=== PATIENT | male | born 1985 | race Caucasian/White ===

== ENCOUNTER 2017-04-21 20:42 | Emergency (ER) | payer MEDICAID | END 2017-04-21 21:40 | disposition left against medical advice (07) | LOC: ER 20:42 | DX: Z53.21 Procedure and treatment not carried out due to patient leaving prior to being seen by health care provider (principal) ==

== ENCOUNTER 2018-02-20 22:12 | Emergency (ER) | payer SELFPAY ==
[2018-02-20] MEDS ORDERED: NORMAL SALINE 1000 ML 1,000 ML IV ONE (22:16)
[2018-02-20] MEDS ORDERED: ONDANSETRON HCL INJ/PF 4 MG/2 ML SDV IV ONE (22:17)
--- NOTE | 2018-02-20 22:23 | ER Document Report ---
ED General - General Stated Complaint: ETOH Time Seen by Provider: 02/20/18 22:16 Cannot obtain history due to: Intoxicated Notes: Patient is a 32-year-old male who presents in the custody of police and EMS after apparently having an episode of syncope while under arrest for drunk driving. Patient apparently syncopized while standing next to a workplace rehabilitation officer. EMS was contacted and he was subsequently brought to the emergency department. The patient himself is unable to provide meaningful history secondary to heavy alcohol intoxication. Past Medical History - General Information source: Patient Cannot obtain history due to: Intoxicated - Social History Smoking Status: Unknown if Ever Smoked Frequency of alcohol use: Heavy Drug Abuse: None Lives with: Spouse/Significant other Family History: Reviewed & Not Pertinent Review of Systems - Review of Systems -: Yes ROS unobtainable due to patient's medical condition Physical Exam - Vital signs Vitals: BP Pulse Ox 158/134 H 95 02/20/18 22:27 02/20/18 22:27 Interpretation: Hypertensive Notes: PHYSICAL EXAMINATION: GENERAL: Intoxicated, somnolent HEAD: Atraumatic, normocephalic. EYES: Pupils equal round and reactive to light, extraocular movements intact, sclera anicteric, conjunctiva are normal. ENT: nares patent, oropharynx clear without exudates. Moderately dry mucous membranes. NECK: Normal range of motion, supple without lymphadenopathy LUNGS: Breath sounds clear to auscultation bilaterally and equal. No wheezes rales or rhonchi. HEART: Regular rate and rhythm without murmurs ABDOMEN: Soft, nontender, normoactive bowel sounds. No guarding, no rebound. No masses appreciated. EXTREMITIES: no pitting or edema. No cyanosis. NEUROLOGICAL: No focal neurological deficits. Moves all extremities spontaneously and on command. PSYCH: Intoxicated SKIN: Warm, Dry, normal turgor, no rashes or lesions noted. Course - Re-evaluation Re-evalutation: 02/20/18 22:22 Patient presents after having a syncopal episode after being pulled over for drunk driving. Patient clinically appears profoundly intoxicated. He is actively vomiting at time of presentation. EMS reports that he has had some periods of hypotension in route to the hospital. The patient is unable to provide meaningful history at time of my initial assessment secondary to significant apparent intoxication. Will proceed with labs, IV fluids, IV ondansetron, EKG, place patient on telemetry and reassess. 02/20/18 23:34 Patient's alcohol level remains markedly elevated. This does account for his clinical presentation. He is currently sleeping soundly. I will await until he is clinically sober to discharge him. 02/21/18 00:14 Patient is now standing, screaming at staff and police officers. He is clinically sober enough to stand under his own power and is cleared for discharge. He will be discharged in the custody of police. - Vital Signs Vital signs: Temp Pulse Resp BP Pulse Ox 20 103/54 L 95 02/21/18 00:01 02/21/18 00:01 02/21/18 00:01 - Laboratory Result Diagrams: 02/20/18 22:05 02/20/18 22:05 Laboratory results interpreted by me: 02/20/18 22:05 Sodium 145.4 H BUN 23 H - EKG Interpretation by Me Additional EKG results interpreted by me: 02/21/18 03:49 Sinus rhythm. Rate 64. No ST elevations or depressions. QTC is 438. Discharge - Discharge Clinical Impression: Alcohol intoxication Qualifiers: Complication of substance-induced condition: uncomplicated Qualified Code(s): F10.920 - Alcohol use, unspecified with intoxication, uncomplicated Syncope Qualifiers: Syncope type: unspecified Qualified Code(s): R55 - Syncope and collapse Condition: Good Disposition: HOME, SELF-CARE Additional Instructions: You were seen in the emergency department today for being drunk. Being seen in the emergency department after drinking alcohol is a serious indicator that you have a problem with alcohol. You should seek help with the attached resources for your problem drinking. Please return to the emergency room immediately if you experience any concerning symptoms including high fevers, severe headache, chest pain, difficulty breathing, abdominal pain, slurred speech, numbness or weakness in your arms or legs, or any other symptom that concerns you.
[2018-02-20 22:49] LABS: ABSOLUTE EOSINOPHILS # (AUTO) 0.1 10^3/uL (0.0-0.6); ABSOLUTE LYMPHOCYTES (AUTO) 2.6 10^3/uL (0.5-4.7); ABSOLUTE MONOCYTES (AUTO) 0.6 10^3/uL (0.1-1.4); ABSOLUTE NEUT (AUTO) 4.9 10^3/uL (1.7-8.2); BASOPHILS % (AUTO) 0.4 % (0-2); EOSINOPHILS % (AUTO) 1.8 % (0-6); HEMATOCRIT 44.4 % (37.9-51.0); HEMOGLOBIN 15.1 g/dL (13.5-17.0); LYMPHOCYTES % (AUTO) 31.8 % (13-45); MEAN CORPUSCULAR HEMOGLOBIN 31.6 pg (27.0-33.4); MEAN CORPUSCULAR HGB CONC 34.1 g/dL (32.0-36.0); MEAN CORPUSCULAR VOLUME 93 fl (80-97); MONOCYTES % (AUTO) 6.9 % (3-13); PLATELET COUNT 253 10^3/uL (150-450); RED BLOOD COUNT 4.79 10^6/uL (4.35-5.55); RED CELL DISTRIBUTION WIDTH 12.6 % (11.5-14.0); SEGMENTED NEUTROPHILS % (AUTO) 59.1 % (42-78); TOTAL CELLS COUNTED % (AUTO) 100 %; WHITE BLOOD COUNT 8.3 10^3/uL (4.0-10.5)
[2018-02-20 23:07] LABS: ALCOHOL 227 mg/dL (NONE DETECTED); ANION GAP 15 (5-19); BLOOD UREA NITROGEN 23 mg/dL (7-20); CALCIUM 9.7 mg/dL (8.4-10.2); CARBON DIOXIDE 23 mmol/L (22-30); CHLORIDE 107 mmol/L (98-107); GLUCOSE 84 mg/dL (75-110); POTASSIUM 4.6 mmol/L (3.6-5.0); SODIUM 145.4 mmol/L (137-145)
[2018-02-21 00:41] VITALS: BP 103/54
--- NOTE | 2018-02-21 09:10 | EKG REPORT ---
SEVERITY:- OTHERWISE NORMAL ECG - SINUS RHYTHM BORDERLINE RIGHT AXIS DEVIATION : Confirmed by: Bam Ceron 21-Feb-2018 09:09:27
== END 2018-02-21 00:35 | disposition home or self-care (01) ==
LOC: ER 22:12
DX: F10.120 Alcohol abuse with intoxication, uncomplicated (principal); R55 Syncope and collapse
CPT/HCPCS: 93005; 99284; 96361; 96374; 36415; 80307; 85025; 80048; 93010; J2405; J7030

== ENCOUNTER 2018-07-04 20:09 | Emergency (ER) | payer SELFPAY ==
[2018-07-04] MEDS ORDERED: LIDOCAINE 1% INJ-PF (10 MG/ML) 30 ML SDV INJ ONE (20:17)
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
[2018-07-04] MEDS ORDERED: ONDANSETRON HCL INJ/PF 4 MG/2 ML SDV IV ONE (20:41)
[2018-07-04] MEDS ORDERED: LORAZEPAM INJ 2 MG/1 ML VIAL IV ONE (20:41)
[2018-07-04] MEDS ORDERED: LORAZEPAM INJ 2 MG/1 ML VIAL IM ONE (20:50)
[2018-07-04] MEDS ORDERED: DIPHENHYDRAMINE HCL 50 MG/ML VIAL IM ONE (20:50)
[2018-07-04] MEDS ORDERED: HALOPERIDOL LACTATE INJ 5 MG/1 ML VIAL IM ONE (20:51)
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
[2018-07-04 22:23] LABS: APPEARANCE,URINE CLEAR; BILIRUBIN,URINE NEGATIVE (NEGATIVE); COLOR,URINE YELLOW; GLUCOSE, URINE NEGATIVE (NEGATIVE); KETONES,URINE NEGATIVE (NEGATIVE); LEUKOCYTE ESTERASE,URINE NEGATIVE (NEGATIVE); NITRITE,URINE NEGATIVE (NEGATIVE); PROTEIN,URINE NEGATIVE (NEGATIVE); URINE SPECIFIC GRAVITY 1.019; UROBILINOGEN,URINE NEGATIVE mg/dL (<2.0)
[2018-07-04 22:38] LABS: URINE AMPHETAMINES SCREEN NEGATIVE; URINE BARBITURATES SCREEN NEGATIVE; URINE BENZODIAZEPINES SCREEN NEGATIVE; URINE COCAINE SCREEN UNCONFIRMED POSITIVE; URINE MARIJUANA (THC) SCREEN NEGATIVE; URINE METHADONE SCREEN NEGATIVE; URINE PHENCYCLIDINE SCREEN NEGATIVE
[2018-07-04 23:50] LABS: ABSOLUTE BASOPHILS # (AUTO) 0.1 10^3/uL (0.0-0.2); ABSOLUTE EOSINOPHILS # (AUTO) 0.1 10^3/uL (0.0-0.6); ABSOLUTE LYMPHOCYTES (AUTO) 2.9 10^3/uL (0.5-4.7); ABSOLUTE MONOCYTES (AUTO) 0.5 10^3/uL (0.1-1.4); ABSOLUTE NEUT (AUTO) 2.9 10^3/uL (1.7-8.2); BASOPHILS % (AUTO) 0.8 % (0-2); EOSINOPHILS % (AUTO) 1.9 % (0-6); HEMATOCRIT 36.3 % (37.9-51.0); HEMOGLOBIN 12.6 g/dL (13.5-17.0); LYMPHOCYTES % (AUTO) 44.5 % (13-45); MEAN CORPUSCULAR HEMOGLOBIN 31.4 pg (27.0-33.4); MEAN CORPUSCULAR HGB CONC 34.6 g/dL (32.0-36.0); MEAN CORPUSCULAR VOLUME 91 fl (80-97); MONOCYTES % (AUTO) 7.2 % (3-13); PLATELET COUNT 208 10^3/uL (150-450); RED CELL DISTRIBUTION WIDTH 13.2 % (11.5-14.0); SEGMENTED NEUTROPHILS % (AUTO) 45.6 % (42-78); TOTAL CELLS COUNTED % (AUTO) 100 %; WHITE BLOOD COUNT 6.5 10^3/uL (4.0-10.5)
[2018-07-05 00:24] LABS: ALANINE AMINOTRANSFERASE 26 U/L (21-72); ALBUMIN 3.6 g/dL (3.5-5.0); ALCOHOL 119 mg/dL (NONE DETECTED); ALKALINE PHOSPHATASE 64 U/L (38-126); ANION GAP 13 (5-19); ASPARTATE AMINO TRANSFERASE 37 U/L (17-59); BILIRUBIN,DIRECT 0.2 mg/dL (0.0-0.4); BILIRUBIN,TOTAL 0.2 mg/dL (0.2-1.3); BLOOD UREA NITROGEN 22 mg/dL (7-20); CALCIUM 8.2 mg/dL (8.4-10.2); CARBON DIOXIDE 24 mmol/L (22-30); CHLORIDE 108 mmol/L (98-107); GLUCOSE 87 mg/dL (75-110); LIPASE 33.3 U/L (23-300); POTASSIUM 4.3 mmol/L (3.6-5.0); SODIUM 144.6 mmol/L (137-145); TOTAL PROTEIN 6.1 g/dL (6.3-8.2)
[2018-07-05 00:27] LABS: ACETAMINOPHEN < 10 ug/mL (10-30); SALICYLATE < 1.0 mg/dL (2.0-20.0)
[2018-07-05] MEDS ORDERED: CEPHALEXIN 500 MG CAPSULE PO SCH (06:00)
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
--- NOTE | 2018-07-05 09:51 | EKG REPORT ---
SEVERITY:- OTHERWISE NORMAL ECG - SINUS ARRHYTHMIA, RATE 66-83 : Confirmed by: Bam Ceron 05-Jul-2018 09:50:40
[2018-07-05] MEDS ORDERED: CEPHALEXIN 500 MG CAPSULE PO ONE (12:49)
[2018-07-05] MEDS ORDERED: ACETAMINOPHEN 325 MG TABLET ONE (12:54)
[2018-07-05 16:51] VITALS: BP 116/97
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
== END 2018-07-05 17:19 | disposition home or self-care (01) ==
LOC: ER 20:09
DX: S61.223A Laceration with foreign body of left middle finger without damage to nail, initial encounter (principal); S61.211A Laceration without foreign body of left index finger without damage to nail, initial encounter; S61.412A Laceration without foreign body of left hand, initial encounter; W25.XXXA Contact with sharp glass, initial encounter; Y93.89 Activity, other specified; Y92.009 Unspecified place in unspecified non-institutional (private) residence as the place of occurrence of the external cause; F14.10 Cocaine abuse, uncomplicated; F10.129 Alcohol abuse with intoxication, unspecified
CPT/HCPCS: 93005; 99284; 96372; 36415; 80307 ×4; 83690; 85025; 80053; 81001; 73130; 93010; 12002; J1200; J1630; J3490

== ENCOUNTER → 2018-12-08 | Outpatient (CLI) | payer BC ==
--- NOTE | 2018-12-08 08:21 | RADIOLOGY REPORT (SQ) ---
EXAM DESCRIPTION: HIPS BILATERAL COMPLETED DATE/TIME: 12/08/2018 7:49 am REASON FOR STUDY: BILATERAL HIP PAIN M25.552 PAIN IN LEFT HIP M25.551 PAIN IN RIGHT HIP COMPARISON: None. NUMBER OF VIEWS: Two views TECHNIQUE: AP pelvis and additional frog-leg view of both hips. LIMITATIONS: None. FINDINGS: MINERALIZATION: Normal. HIPS: No acute fracture or dislocation. No worrisome bone lesions. PELVIS AND SACRUM: No acute fracture or dislocation. No worrisome bone lesions. PUBIS AND ISCHIUM: No acute fracture. LOWER LUMBAR SPINE: No significant findings as visualized. SOFT TISSUES: No findings. OTHER: No other significant finding. IMPRESSION: 1. NEGATIVE STUDY OF THE PELVIS AND HIPS. TECHNICAL DOCUMENTATION: JOB ID: [id number] [employer])- All Rights Reserved Reading location - IP/workstation name: [email or web address]
== END ==
LOC: OD 07:19
PROVIDERS: ATTEND Family Medicine
DX: M25.552 Pain in left hip (principal); M25.551 Pain in right hip
CPT/HCPCS: 73522

== ENCOUNTER → 2019-05-28 | Outpatient (CLI) | payer BC ==
--- NOTE | 2019-05-29 12:37 | RADIOLOGY REPORT (SQ) ---
EXAM DESCRIPTION: MRILLJ WO COMPLETED DATE/TIME: 05/28/2019 7:26 pm REASON FOR STUDY: M25.552 PAIN IN LEFT HIP COMPARISON: 12/08/2018 radiographs. TECHNIQUE: Noncontrast multiplanar MR imaging. Sequences include wide field of view pelvis and focu sed hip of interest. Fat sensitive, water sensitive, and cartilage sensitive sequences. Specific hip of interest: Left LIMITATIONS: None. FINDINGS: MARROW SIGNAL: Normal, no evidence of replacement, occult fracture or suspicious bone lesi on in the visualized lumbar spine, pelvis and proximal femurs. SPECIFIC HIP OF INTEREST: No effusion, fracture or AVN. Grossly appropriate acetabular coverage wit h normal sphericity of the femoral head suggested. No focal chondral lesions or reactive bone change s. No paralabral cysts appreciated. No regional muscle tear or bursitis. OPPOSITE HIP: Normal. No effusion or other significant finding on limited sequences. REMAINDER OF THE OSSEOUS PELVIS: SI joints normal. Symphasis pubis intact. No Avulsion injury evide nt. INTRA- AND EXTRAPELVIC SOFT TISSUES: No intrapelvic mass or free fluid. Bladder normal. No extrapelv ic mass. No inguinal hernia or adenopathy. IMPRESSION: Normal MRI left hip. Reading location - IP/workstation name: [email or web address]
== END ==
LOC: RAD 18:35
PROVIDERS: ATTEND Family Medicine
DX: M25.552 Pain in left hip (principal)

== ENCOUNTER 2019-08-02 12:52 | Emergency (ER) | payer BC ==
[2019-08-02 12:56] VITALS: BP 121/72
[2019-08-02] MEDS ORDERED: CEPHALEXIN 500 MG CAPSULE PO ONE (13:20)
--- NOTE | 2019-08-02 13:20 | ER Document Report ---
HPI - HPI Time Seen by Provider: 08/02/19 13:08 Pain Level: 3 Context: Patient is a 34-year-old male presents to the emergency department with a chief complaint of rash to his left ankle. Patient states he woke up this morning noticed some swelling and redness around the anterior part of the left ankle. Patient states he does have a history of MRSA and was concerned about a possible developing abscess. Patient reports that is oozing a small amount of clear drainage. Patient states yesterday he was working out in the yard a lot he is unsure if he got bit by something. Patient denies fever. Patient is able to ambulate without distress. Past Medical History - General Information source: Patient - Social History Smoking Status: Current Every Day Smoker Frequency of alcohol use: None Drug Abuse: None Lives with: Spouse/Significant other Family History: Reviewed & Not Pertinent Patient has suicidal ideation: No Patient has homicidal ideation: No - Past Medical History Cardiac Medical History: Reports: None Denies: Hx Coronary Artery Disease, Hx Heart Attack, Hx Hypertension Pulmonary Medical History: Reports: Hx Pneumonia Denies: Hx Asthma, Hx Bronchitis, Hx COPD EENT Medical History: Reports: None Neurological Medical History: Reports: None. Denies: Hx Cerebrovascular Acciden t, Hx Seizures Endocrine Medical History: Reports: None Renal/ Medical History: Reports: None. Denies: Hx Peritoneal Dialysis Malignancy Medical History: Reports None GI Medical History: Reports: None Musculoskeletal Medical History: Reports None, Denies Hx Arthritis Skin Medical History: Reports Hx MRSA Psychiatric Medical History: Reports: Hx Anxiety, Hx Post Traumatic Stress Disorder Traumatic Medical History: Reports: None Infectious Medical History: Reports: None Past Surgical History: Reports: Hx Orthopedic Surgery - Immunizations Immunizations up to date: Yes Hx Diphtheria, Pertussis, Tetanus Vaccination: Yes Vertical Provider Document - CONSTITUTIONAL Agree With Documented VS: Yes Exam Limitations: No Limitations General Appearance: No Apparent Distress - INFECTION CONTROL TRAVEL OUTSIDE OF THE [place] IN LAST 30 DAYS: No - HEENT HEENT: Atraumatic, Normocephalic, PERRLA - RESPIRATORY Respiratory: Breath Sounds Normal, No Respiratory Distress - CARDIOVASCULAR Cardiovascular: Regular Rate, Regular Rhythm - GI/ABDOMEN Gastrointestinal: Abdomen Soft, Abdomen Non-Tender, Normal Bowel Sounds - NEURO Level of Consciousness: Awake, Alert, Appropriate - Is - DERM Adult Front & Back Diagram: 1 - There is edema and erythema noted to the and anterior aspect of the left ankle. There is no point tenderness noted to the medial or lateral malleolus. There is an area of open skin that is oozing a clear liquid and appears to be superficial. There is soft tissue swelling. The area is not indurated or firm. Course - Re-evaluation Re-evalutation: 08/02/19 13:17 We will treat the patient with oral antibiotics. We will give the first dose of Keflex here in the emergency department. Patient states he has taken Keflex in the past without an allergic reaction or problem. I did inform the patient to keep the area clean and dry and monitor for signs of worsening. - Vital Signs Vital signs: Temp Pulse Resp BP Pulse Ox 98.0 F 62 16 121/72 97 08/02/19 12:56 08/02/19 12:56 08/02/19 12:56 08/02/19 12:56 08/02/19 12:56 Discharge - Discharge Clinical Impression: Cellulitis Qualifiers: Site of cellulitis: extremity Site of cellulitis of extremity: lower extremity Laterality: left Qualified Code(s): L03.116 - Cellulitis of left lower limb Condition: Stable Disposition: HOME, SELF-CARE Instructions: Cephalexin ([facility]) Additional Instructions: Today you are seen in the emergency department for left ankle redness and pain. It does appear that you have an area of redness appears to be an abrasion with some surrounding soft tissue swelling and cellulitis. We are giving you an oral antibiotic called Keflex. Please take as prescribed and for its full course. Please return to the emergency department immediately if your symptoms worsen to include worsening pain, redness that streaks up or down the leg, increased swelling, fever or any other concerning signs or symptoms. Please keep this area clean and dry. Cellulitis You have an infection of your skin and underlying soft tissues called cellulitis. This is due to bacteria, which can enter through any break in the skin, or even through an irritated hair follicle. Untreated, cellulitis will usually worsen. Antibiotics are required. Usually, warm packs or warm soaks, and elevation of the infected area are recommended. You should start getting better within 24 to 36 hours. Most infections respond quickly to the right medication. Follow-up care is important, however, to check for abscess (boil) formation, unsuspected foreign body, or resistant infection. If you develop fever, chills, or if the area of infection is becoming rapidly more swollen or painful, call the doctor at once. Prescriptions: Cephalexin Monohydrate [Keflex 500 mg Capsule] 500 mg PO QID 7 Days #28 capsule Referrals: PABLO VASQUES DO [Primary Care Provider] - Follow up as needed
== END 2019-08-02 13:26 | disposition home or self-care (01) ==
LOC: ER 12:52
DX: L03.116 Cellulitis of left lower limb (principal); R21 Rash and other nonspecific skin eruption; M79.89 Other specified soft tissue disorders; F17.200 Nicotine dependence, unspecified, uncomplicated
CPT/HCPCS: 99283

== ENCOUNTER 2019-08-26 11:09 | Emergency (ER) | payer BC ==
[2019-08-26 11:22] VITALS: BP 118/64
--- NOTE | 2019-08-26 11:42 | ER Document Report ---
ED Medical Screen (RME) - General Chief Complaint: Laceration Stated Complaint: FINGER LACERATION Time Seen by Provider: 08/26/19 11:38 Primary Care Provider: PABLO VASQUES DO [Primary Care Provider] - Follow up as needed Mode of Arrival: Ambulatory Information source: Patient Notes: 34-year-old male presents emergency department with a laceration to his left fifth digit no active bleeding superficial has difficulty flexing his finger completely. Reports this just happened, reports tetanus is up-to-date. I have greeted and performed a rapid initial assessment of this patient. A comprehensive ED assessment and evaluation of the patient, analysis of test results and completion of the medical decision making process will be conducted by additional ED providers. Dictation of this chart was performed using voice recognition software; therefore, there may be some unintended grammatical errors. TRAVEL OUTSIDE OF THE [place] IN LAST 30 DAYS: No - Related Data Allergies/Adverse Reactions: amoxicillin Allergy (Verified 08/26/19 11:37) Past Medical History - Past Medical History Cardiac Medical History: Denies: Hx Coronary Artery Disease, Hx Heart Attack, Hx Hypertension Pulmonary Medical History: Reports: Hx Pneumonia Denies: Hx Asthma, Hx Bronchitis, Hx COPD Neurological Medical History: Denies: Hx Cerebrovascular Accident, Hx Seizures Renal/ Medical History: Denies: Hx Peritoneal Dialysis Musculoskeltal Medical History: Denies Hx Arthritis Skin Medical History: Reports Hx MRSA Psychiatric Medical History: Reports: Hx Anxiety, Hx Post Traumatic Stress Disorder Past Surgical History: Reports: Hx Orthopedic Surgery - Immunizations Immunizations up to date: Yes Hx Diphtheria, Pertussis, Tetanus Vaccination: Yes Physical Exam - Vital signs Vitals: Temp Pulse Resp BP Pulse Ox 98.1 F 54 L 16 118/64 97 08/26/19 11:17 08/26/19 11:17 08/26/19 11:17 08/26/19 11:17 08/26/19 11:17 Course - Vital Signs Vital signs: Temp Pulse Resp BP Pulse Ox 98.1 F 54 L 16 118/64 97 08/26/19 11:17 08/26/19 11:17 08/26/19 11:17 08/26/19 11:17 08/26/19 11:17 Doctor's Discharge - Discharge Referrals: PABLO VASQUES DO [Primary Care Provider] - Follow up as needed
--- NOTE | 2019-08-26 12:02 | RADIOLOGY REPORT (SQ) ---
EXAM DESCRIPTION: FINGER LEFT COMPLETED DATE/TIME: 08/26/2019 11:53 am REASON FOR STUDY: laceration COMPARISON: None. NUMBER OF VIEWS: Three views. TECHNIQUE: AP, lateral, and oblique images acquired of the left fifth finger LIMITATIONS: None. FINDINGS: MINERALIZATION: Normal. BONES: Old healed fifth distal metacarpal boxer's fracture. No acute fracture or dislocation. No wo rrisome bone lesions. SOFT TISSUES: No soft tissue swelling. No foreign body. OTHER: No other significant finding. IMPRESSION: No acute fracture left 5th finger. Old healed boxer fracture distal left 5th metacarpal TECHNICAL DOCUMENTATION: JOB ID: [id number] [employer]- All Rights Reserved Reading location - IP/workstation name: [email or web address]
--- NOTE | 2019-08-26 12:15 | ER Document Report ---
HPI - HPI Patient complains to provider of: 5th finger left hand injury Time Seen by Provider: 08/26/19 11:38 Onset: Just prior to arrival Onset/Duration: Sudden Pain Level: 1 Context: Patient presents emergency department with laceration to his left fifth finger after cutting himself with his own knife. Reports tetanus is up-to-date. No active bleeding. Patient is unable to completely flex his left finger. Denies numbness tingling. Associated Symptoms: None Exacerbated by: Denies Relieved by: Denies Similar symptoms previously: No Recently seen / treated by doctor: No - REPRODUCTIVE Reproductive: DENIES: : Past Medical History - General Information source: Patient - Social History Smoking Status: Current Every Day Smoker Chew tobacco use (# tins/day): No Frequency of alcohol use: None Drug Abuse: None Occupation: Self-employed Lives with: Family Family History: Reviewed & Not Pertinent Patient has suicidal ideation: No Patient has homicidal ideation: No - Past Medical History Cardiac Medical History: Denies: Hx Coronary Artery Disease, Hx Heart Attack, Hx Hypertension Pulmonary Medical History: Reports: Hx Pneumonia Denies: Hx Asthma, Hx Bronchitis, Hx COPD Neurological Medical History: Denies: Hx Cerebrovascular Accident, Hx Seizures Renal/ Medical History: Denies: Hx Peritoneal Dialysis Musculoskeletal Medical History: Denies Hx Arthritis Skin Medical History: Reports Hx MRSA Psychiatric Medical History: Reports: Hx Anxiety, Hx Post Traumatic Stress Disorder Past Surgical History: Reports: Hx Orthopedic Surgery - Immunizations Immunizations up to date: Yes Hx Diphtheria, Pertussis, Tetanus Vaccination: Yes Vertical Provider Document - CONSTITUTIONAL Agree With Documented VS: Yes Exam Limitations: No Limitations General Appearance: WD/WN, No Apparent Distress - INFECTION CONTROL TRAVEL OUTSIDE OF THE [place] IN LAST 30 DAYS: No - HEENT HEENT: Atraumatic, Normocephalic - NECK Neck: Supple - RESPIRATORY Respiratory: No Respiratory Distress - MUSCULOSKELETAL/EXTREMETIES Musculoskeletal/Extremeties: MAEW, FROM, Tender - NEURO Level of Consciousness: Awake, Alert, Appropriate - DERM Integumentary: Warm, Dry, Laceration Adult Front & Back Diagram: 1 - Approximately 1 cm laceration noted to his left fifth finger medially. No active bleeding. X-ray negative. Patient is unable to flex his finger completely. Course - Re-evaluation Re-evalutation: 08/26/19 12:36 Patient was sent over to the supra track but after getting his finger cleaned he informed the nurse that he wanted to leave. He did not want to wait for sutures or further evaluation. I did go over and talk to the patient explained to him that he could have a tendon injury. That it did need to be evaluated further. He declined. He was instructed on signs and symptoms of infection. He was also instructed that if he did not follow-up for further evaluation he may lose full the function of that finger. He may never be able to flex the finger again. He verbalized understanding. The patient has decided not to proceed with further recommended testing or treatment to determine the cause of their symptoms. The risks and alternatives to the recommendations were discussed and the patient was understanding. The patient appears clinically to have the capacity to make this decision. Patient was instructed that he/she could return to the emergency department at any time to complete the testing treatment. Dictation of this chart was performed using voice recognition software; therefore, there may be some unintended grammatical errors. 08/26/19 12:37 Finger X-Ray 08/26/19 11:42 IMPRESSION: No acute fracture left 5th finger. Old healed boxer fracture distal left 5th metacarpal - Vital Signs Vital signs: Temp Pulse Resp BP Pulse Ox 98.1 F 54 L 16 118/64 97 08/26/19 11:17 08/26/19 11:17 08/26/19 11:17 08/26/19 11:17 08/26/19 11:17 - Diagnostic Test Radiology reviewed: Image reviewed, Reports reviewed Discharge - Discharge Clinical Impression: Finger laceration, possible tendon injury Condition: Stable Disposition: HOME, SELF-CARE Instructions: Soap Cleansing ([facility]) Additional Instructions: *You have been evaluated for a finger laceration with possible tendon injury You have opted to leave the emergency department without completing your care If you have a tendon injury and it is not fixed you may not be able to flex her finger completely Please follow-up with your primary care provider as soon as possible for evaluat ion Monitor your finger for signs of infection such as increasing pain redness swelling warmth Keep your finger clean Return to the emergency department for any concerns signs of infection needs Referrals: PABLO VASQUES DO [Primary Care Provider] - Follow up in 3-5 days
== END 2019-08-26 12:20 | disposition home or self-care (01) ==
LOC: ER 11:09
DX: S61.217A Laceration without foreign body of left little finger without damage to nail, initial encounter (principal); W26.0XXA Contact with knife, initial encounter; Y92.512 Supermarket, store or market as the place of occurrence of the external cause; F17.200 Nicotine dependence, unspecified, uncomplicated; Z53.29 Procedure and treatment not carried out because of patient's decision for other reasons
CPT/HCPCS: 99283

== ENCOUNTER 2019-09-07 11:17 | Day surgery (SDC) | payer BC ==
[~2019-09-07 11:17] MED LIST: PROPOFOL INJ 200 MG/20 ML VIAL IV ONE
[2019-09-07] MEDS ORDERED: RINGERS SOLUTION,LACTATED 1,000 ML IV ONE (12:30)
[2019-09-07] MEDS ORDERED: ALBUTEROL SULFATE 0.083% NEB 2.5 MG/3 ML AMPUL NEB ONE (12:30)
[2019-09-07] MEDS ORDERED: ONDANSETRON HCL INJ/PF 4 MG/2 ML SDV IV PRN (12:31)
[2019-09-07] MEDS ORDERED: PROPOFOL INJ 200 MG/20 ML VIAL IV ONE (13:07)
--- NOTE | 2019-09-07 13:56 | Operative Report ---
Operative Report DATE OF SURGERY: 09/07/19 Operative Report: The risks, benefits and alternatives of the procedure including the risk of bleeding, perforation requiring surgery have been explained to the patient in detail and informed consent has been obtained. Patient is taken back to the operating room and placed in the left, lateral decubital position. Timeout was called. Propofol medication is administered. Rectal examination is done which did not reveal any masses, tears or fissures. An Olympus videoscope was introduced into the patient's rectum. The scope was then carefully advanced all the way to the cecum. Cecum was identified by the usual anatomical landmarks including the ileocecal valve as well as the appendiceal office. Photodocumentation is obtained. Scope was then sequentially pulled back via the various segments of the colon including the ascending colon, hepatic flexure, transverse colon, splenic flexure, descending colon finding to the rectosigmoid portions of the colon. Retroflexion maneuvers performed. PREOPERATIVE DIAGNOSIS: Rectal bleeding. POSTOPERATIVE DIAGNOSIS: Mild nonspecific right side colon biopsy. Internal hemorrhoids OPERATION: Colonoscopy with biopsy SURGEON: BEN COX ANESTHESIA: LMAC TISSUE REMOVED OR ALTERED: As noted above. COMPLICATIONS: None. ESTIMATED BLOOD LOSS: None. INTRAOPERATIVE FINDINGS: As noted above. PROCEDURE: Patient tolerated the procedure well. No immediate postprocedure complications are noted. Patient is discharged in good condition. Discharge date 09/07/2019. Discharge diet: Regular. Discharge activity: Regular. 2 to 3-week follow-up to discuss findings. Patient is instructed to call the office or proceed to the emergency room should there be any further problems or questions. Weight on pathology.
[2019-09-07 15:25] VITALS: BP 118/80
== END 2019-09-07 14:40 | disposition home or self-care (01) ==
LOC: OROUT 11:17
PROVIDERS: ATTEND Internal Medicine Gastroenterology
DX: K62.5 Hemorrhage of anus and rectum (principal); K64.8 Other hemorrhoids; K52.9 Noninfective gastroenteritis and colitis, unspecified; J45.20 Mild intermittent asthma, uncomplicated
CPT/HCPCS: 45380; 88305 ×2; 94640; 00811; J2704; 811

== ENCOUNTER 2019-09-20 11:27 | Day surgery (SDC) | payer BC ==
[2019-09-20] MEDS ORDERED: PROPOFOL INJ 200 MG/20 ML VIAL IV ONE (11:59)
--- NOTE | 2019-09-20 12:21 | Operative Report ---
Operative Report DATE OF SURGERY: 09/20/19 Operative Report: The risks benefits and alternatives of the procedure explained to the patient in detail and informed consent is obtained.A GIF Olympus video scope was inserted into the patient's mouth and hypopharynx, the esophagus is identified intubated and insufflated, the scope was then advanced through the esophagus stomach and duodenum, retroflexion maneuver is done, the esophagus stomach and first and second portions of the duodenum examined. PREOPERATIVE DIAGNOSIS: Nausea vomiting POSTOPERATIVE DIAGNOSIS: Esophagitis/ulcer status post biopsy. Gastritis status post biopsy OPERATION: EGD with biopsy SURGEON: BEN COX ANESTHESIA: LMAC TISSUE REMOVED OR ALTERED: As noted above. COMPLICATIONS: None. ESTIMATED BLOOD LOSS: None. INTRAOPERATIVE FINDINGS: As noted above. PROCEDURE: Patient tolerated the procedure well. No immediate postprocedure complications are noted. Patient is discharged in good condition. Discharge date 09/20/2019. Discharge diet: Regular. Discharge activity: Regular. 2 to 3-week follow-up to discuss findings. Patient is instructed to call the office or proceed to the emergency room should there be any further problems. Wait on the pathology.
[2019-09-20 12:40] VITALS: BP 122/44
== END 2019-09-20 12:50 | disposition home or self-care (01) ==
LOC: END 11:27
PROVIDERS: ATTEND Internal Medicine Gastroenterology
DX: K29.50 Unspecified chronic gastritis without bleeding (principal); K20.9 Esophagitis, unspecified; K64.8 Other hemorrhoids; J45.20 Mild intermittent asthma, uncomplicated; F17.210 Nicotine dependence, cigarettes, uncomplicated; Z79.51 Long term (current) use of inhaled steroids
CPT/HCPCS: 43239; 88305 ×2; J2704; 731

== ENCOUNTER → 2019-10-20 | Outpatient (CLI) | payer BC ==
--- NOTE | 2019-10-20 16:25 | XCELERA REPORT ---
[address] [address] Transthoracic Echocardiogram Report Name: ROSS CLARKFAISAL Age: 34 yrs Gender: Male : 1985 Patient Status: Outpatient Patient Location: RAD Study Date: 10/20/2019 01:18 PM Height: 70 in Weight: 170 lb BSA: 1.9 m2 Reason For Study: HYPOTENSION Ordering Physician: PABLO VASQUES Performed By: José Manuel Lawton Interpretation Summary No significant post pericardial effusion aortic root not dilated. AV is normal and 3 cusps, no no AR MV showed mild mild mitral annular calcification, normal leaflets with no MS, no MVP, mild MR with no LA enlargement, GRUPO 33.3. LV shows no LVH, LVEF is 69% biplane, , visually 60-65%. still normal. Segmental regional wall motion abnormality is mild see pictorals). no LV enlargement, No LV diastolic dysfunction. .RV, RA normal size, mod TR with RVSP 35 mm Hg with dilated IVC 25.9 mm, and collapse <50% , hence RAP 15. MMode/2D Measurements & Calculations RVDd: 3.2 cm LVIDd: 5.5 cm FS: 37.7 % Ao root diam: IVSd: 0.80 cm LVIDs: 3.4 cm EDV(Teich): 2.8 cm LVPWd: 0.76 cm 144.8 ml Ao root area: ESV(Teich): 47.4 ml 6.1 cm2 LA dimension: EF(Teich): 67.3 % 4.0 cm LVLd ap4: 9.2 cm SV(MOD-sp4): EDV(MOD-sp4): 93.0 ml 134.0 ml LVLs ap4: 7.5 cm ESV(MOD-sp4): 41.0 ml EF(MOD-sp4): 69.4 % Doppler Measurements & Calculations MV E max sapna: MV P1/2t max sapna: Ao V2 max: LV V1 max P.2 cm/sec 99.1 cm/sec 131.7 cm/sec 8.6 mmHg MV A max sapna: MV P1/2t: 89.9 msec Ao max P.9 mmHgLV V1 max: 37.2 cm/sec MVA(P1/2t): 2.4 cm2 146.4 cm/sec MV E/A: 2.4 MV dec slope: 322.7 cm/sec2 MV dec time: 0.26 sec PA V2 max: TR max sapna: MV P1/2t-pr_phl: 111.3 cm/sec 219.6 cm/sec 89.9 msec PA max P.0 mmHgTR max P.3 mmHg I WMSI = 1.50 % Normal = 50 Segments Size X - Cannot 2 - 4 - 1-2 small Interpret 1 - Normal Hypokinetic 3 - AkineticDyskinetic 3-5 moderate 5 - 6-14 large Aneurysmal 15-16 diffuse : PABLO VASQUES Andre
== END ==
LOC: RAD 12:55
PROVIDERS: ATTEND Family Medicine
DX: I95.9 Hypotension, unspecified (principal)
CPT/HCPCS: 93306

== ENCOUNTER 2019-11-15 08:11 | Day surgery (SDC) | payer BC ==
[~2019-11-15 08:11] MED LIST changes: +LIDOCAINE 2% INJ-PF (20 MG/ML) 10 ML AMPUL ONE
[2019-11-15] MEDS ORDERED: PROPOFOL INJ 200 MG/20 ML VIAL IV ONE (08:46)
[2019-11-15 09:49] VITALS: BP 104/50
--- NOTE | 2019-11-15 12:51 | Operative Report ---
Operative Report DATE OF SURGERY: 11/15/19 Operative Report: The risks benefits and alternatives of the procedure explained to the patient in detail and informed consent is obtained.A GIF Olympus video scope was inserted into the patient's mouth and hypopharynx ,the esophagus is identified intubated and insufflated ,the scope was then advanced through the esophagus stomach and duodenum ,retroflexion maneuver is done, the esophagus stomach and first and second portions of the duodenum examined PREOPERATIVE DIAGNOSIS: Follow-up esophageal ulcer POSTOPERATIVE DIAGNOSIS: Healed esophageal ulcer. Gastritis status post biopsy without Helicobacter pylori OPERATION: EGD with biopsy SURGEON: BEN COX ANESTHESIA: LMAC TISSUE REMOVED OR ALTERED: As noted above. COMPLICATIONS: None. ESTIMATED BLOOD LOSS: None. INTRAOPERATIVE FINDINGS: As noted above. PROCEDURE: Patient tolerated the procedure well. No immediate postprocedure complications are noted. Patient is discharged in good condition. Discharge date 11/15/2019. Discharge diet: Regular. Discharge activity: Regular. 2 to 3-week follow-up to discuss findings. Patient is instructed to call the office or proceed to the emergency room should there be any further problems or questions. Wait on the pathology.
== END 2019-11-15 09:54 | disposition home or self-care (01) ==
LOC: END 08:11
PROVIDERS: ATTEND Internal Medicine Gastroenterology
DX: K31.9 Disease of stomach and duodenum, unspecified (principal); Z09 Encounter for follow-up examination after completed treatment for conditions other than malignant neoplasm; Z87.19 Personal history of other diseases of the digestive system; F17.210 Nicotine dependence, cigarettes, uncomplicated; J45.20 Mild intermittent asthma, uncomplicated; Z79.51 Long term (current) use of inhaled steroids; Z88.0 Allergy status to penicillin
CPT/HCPCS: 43239; 88342 ×2; 88305 ×2; 00731; J2704; J3490; 731

== ENCOUNTER → 2020-01-24 | Outpatient (CLI) | payer BC ==
[2020-01-25 11:08] LABS: HEMATOCRIT 40.8 % (37.9-51.0); HEMOGLOBIN 14.5 g/dL (13.5-17.0); MEAN CORPUSCULAR HEMOGLOBIN 31.8 pg (27.0-33.4); MEAN CORPUSCULAR HGB CONC 35.6 g/dL (32.0-36.0); MEAN CORPUSCULAR VOLUME 89 fl (80-97); PLATELET COUNT 212 10^3/uL (150-450); RED BLOOD COUNT 4.57 10^6/uL (4.35-5.55); RED CELL DISTRIBUTION WIDTH 13.3 % (11.5-14.0); WHITE BLOOD COUNT 6.5 10^3/uL (4.0-10.5)
[2020-01-25 11:36] LABS: ALBUMIN 4.8 g/dL (3.5-5.0); ALKALINE PHOSPHATASE 52 U/L (38-126); ANION GAP 10 (5-19); ASPARTATE AMINO TRANSFERASE 25 U/L (17-59); BILIRUBIN,TOTAL 0.5 mg/dL (0.2-1.3); BLOOD UREA NITROGEN 13 mg/dL (7-20); CALCIUM 9.6 mg/dL (8.4-10.2); CARBON DIOXIDE 29 mmol/L (22-30); CHLORIDE 99 mmol/L (98-107); CHOLESTEROL 109.57 mg/dL (0-200); GLUCOSE 66 mg/dL (75-110); POTASSIUM 5.3 mmol/L (3.6-5.0); TOTAL PROTEIN 7.5 g/dL (6.3-8.2); TRIGLYCERIDES 97 mg/dL (<150)
[2020-01-25 11:47] LABS: DIRECT LDL 54 mg/dL (<100)
== END ==
LOC: OD 15:17
DX: R00.1 Bradycardia, unspecified (principal); F11.20 Opioid dependence, uncomplicated; F41.1 Generalized anxiety disorder; F17.210 Nicotine dependence, cigarettes, uncomplicated
CPT/HCPCS: 36415; 80053; 80061; 80074; 82306; 85027; 86592; 86701

== ENCOUNTER → 2020-05-16 | Outpatient (CLI) | payer BC | LOC: OD 08:39 | PROVIDERS: ATTEND Internal Medicine | DX: R07.9 Chest pain, unspecified (principal) | CPT/HCPCS: 36415; 85379 ==

== ENCOUNTER → 2020-06-20 | Outpatient (CLI) | payer BC ==
[2020-06-20 14:24] LABS: HEMATOCRIT 39.1 % (37.9-51.0); HEMOGLOBIN 13.7 g/dL (13.5-17.0); MEAN CORPUSCULAR VOLUME 91 fl (80-97); PLATELET COUNT 222 10^3/uL (150-450); RED BLOOD COUNT 4.28 10^6/uL (4.35-5.55); RED CELL DISTRIBUTION WIDTH 12.7 % (11.5-14.0); WHITE BLOOD COUNT 5.6 10^3/uL (4.0-10.5)
[2020-06-20 14:39] LABS: ALBUMIN 4.5 g/dL (3.5-5.0); ALKALINE PHOSPHATASE 49 U/L (38-126); ANION GAP 6 (5-19); ASPARTATE AMINO TRANSFERASE 29 U/L (17-59); BILIRUBIN,TOTAL 0.3 mg/dL (0.2-1.3); BLOOD UREA NITROGEN 10 mg/dL (7-20); CALCIUM 9.5 mg/dL (8.4-10.2); CARBON DIOXIDE 29 mmol/L (22-30); CHLORIDE 101 mmol/L (98-107); CHOLESTEROL 122.38 mg/dL (0-200); GLUCOSE 101 mg/dL (75-110); POTASSIUM 4.4 mmol/L (3.6-5.0); TOTAL PROTEIN 7.1 g/dL (6.3-8.2); TRIGLYCERIDES 135 mg/dL (<150)
[2020-06-20 14:50] LABS: DIRECT LDL 62 mg/dL (<100)
[2020-06-20 14:54] LABS: FREE T3 3.84 pg/mL (2.77-5.27); FREE T4 (FREE THYROXINE) 1.1 ng/dL (0.78-2.19)
[2020-06-20 15:08] LABS: THYROID STIMULATING HORMONE 1.92 uIU/mL (0.47-4.68)
== END ==
LOC: OD 12:57
PROVIDERS: ATTEND Family Medicine
DX: E55.9 Vitamin D deficiency, unspecified (principal); I10 Essential (primary) hypertension; E78.00 Pure hypercholesterolemia, unspecified; F11.20 Opioid dependence, uncomplicated; F17.210 Nicotine dependence, cigarettes, uncomplicated; F41.1 Generalized anxiety disorder; R00.1 Bradycardia, unspecified; Z51.81 Encounter for therapeutic drug level monitoring; Z79.899 Other long term (current) drug therapy
CPT/HCPCS: 36415; 80053; 80061; 80074; 82306; 84439; 84443; 84481; 85027; 86592; 86701

== ENCOUNTER → 2020-12-08 | Outpatient (CLI) | payer BC ==
[2020-12-08 18:44] LABS: URINE AMPHETAMINES SCREEN NEGATIVE; URINE BARBITURATES SCREEN NEGATIVE; URINE BENZODIAZEPINES SCREEN NEGATIVE; URINE COCAINE SCREEN NEGATIVE; URINE MARIJUANA (THC) SCREEN NEGATIVE; URINE METHADONE SCREEN NEGATIVE; URINE PHENCYCLIDINE SCREEN NEGATIVE
== END ==
LOC: OD 16:15
PROVIDERS: ATTEND Family Medicine
DX: Z51.81 Encounter for therapeutic drug level monitoring (principal); Z79.899 Other long term (current) drug therapy; R00.1 Bradycardia, unspecified; F41.1 Generalized anxiety disorder; F17.211 Nicotine dependence, cigarettes, in remission; K29.61 Other gastritis with bleeding
CPT/HCPCS: 80307